=== PATIENT | male | born 2005 | race African-American/Black ===

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

== ENCOUNTER 2024-05-16 16:59 | Emergency (ER) | payer OTHER ==
[~2024-05-16] VITALS: Ht 180.3 cm; Wt 72.2 kg
[~2024-05-16 16:59] MED LIST changes: +DOXY-354 PO
[2024-05-16 18:10] LABS: COVID AG,FIA SOURCE NASAL SWAB
[2024-05-16 18:31] LABS: RAPID GROUP A STREP NEGATIVE (NEGATIVE)
[2024-05-16 18:41] LABS: INFLUENZA TYPE B NEGATIVE FOR TYPE B (NEGATIVE); SARS-COV2 (COVID) ANTIGEN,FIA Negative (Negative)
[2024-05-16 18:47] LABS: INFLUENZA TYPE A POSITIVE FOR TYPE A (NEGATIVE)
[2024-05-16 19:12] VITALS: BP 124/66; PULSE 89; RESP 22; TEMP 102.1; O2SAT 100
[2024-05-16] MEDS ORDERED: GUAIFDM PO (19:28)
[2024-05-16] MEDS ORDERED: IBUP-1554 PO (19:28)
[2024-05-16] MEDS ORDERED: ACET-66 PO (19:28)
[2024-05-16] MEDS: ACETAMINOPHEN 500 MG TABLET PO ONE (19:45)
[2024-05-16] MEDS: GuaiFENesin/D-METHORPHAN [SUGAR-FREE] 200-20MG/10 ML SYRUP UDCUP PO ONE (19:45)
[2024-05-16] MEDS: IBUPROFEN 600 MG TABLET PO ONE (19:45)
== END 2024-05-16 20:07 | disposition home or self-care (01) ==
LOC: EMS 16:59
DX: J10.1 Influenza due to other identified influenza virus with other respiratory manifestations (principal); Z20.822 Contact with and (suspected) exposure to COVID-19
CPT/HCPCS: 87430; 87804; 99284; Z7502; Z7610

== ENCOUNTER 2024-05-20 10:33 | Emergency (ER) | payer OTHER ==
[~2024-05-20] VITALS: Ht 180.3 cm; Wt 75.0 kg
[~2024-05-20 10:33] MED LIST changes: +ACET-66 PO; -ALBU8.5H8 IH; -DOXY-354 PO; +GUAIFDM PO; +IBUP-1554 PO
[2024-05-20 10:38] VITALS: TEMP 97.6
[2024-05-20] MEDS: ACETAMINOPHEN 500 MG TABLET PO ONE (11:11)
[2024-05-20 11:50] VITALS: BP 100/58; PULSE 65; RESP 18; O2SAT 100
[2024-05-20] MEDS ORDERED: ACET-3385 PO (11:59)
[2024-05-20] MEDS ORDERED: IBUP-1492 PO (11:59)
[2024-05-20] MEDS ORDERED: AZIT-164 PO (11:59)
[2024-05-20] MEDS: AZITHROMYCIN 500 MG TABLET PO ONE (12:02)
== END 2024-05-20 12:12 | disposition home or self-care (01) ==
LOC: EMS 10:35
DX: J40 Bronchitis, not specified as acute or chronic (principal)
CPT/HCPCS: 99283; 71046; J0456

== ENCOUNTER 2024-05-22 10:51 | Emergency (ER) | payer OTHER ==
[~2024-05-22] VITALS: Ht 177.8 cm; Wt 59.1 kg
[~2024-05-22 10:51] MED LIST changes: +ACET-3385 PO; -ACET-66 PO; +AZIT-164 PO; -GUAIFDM PO; +IBUP-1492 PO; -IBUP-1554 PO
[2024-05-22 11:38] LABS: BASOPHILS % (AUTO) 1.1 % (0.0-2.0); EOSINOPHILS % (AUTO) 1.1 % (1.0-6.0); HEMATOCRIT 44.5 % (41-53); HEMOGLOBIN 14.8 g/dL (13.5-17.5); LYMPHOCYTES % (AUTO) 52.5 % (22.0-44.0); MEAN CORPUSCULAR HEMOGLOBIN 27.4 pg (26.0-34.0); MEAN CORPUSCULAR HGB CONC 33.3 G/dL (31.0-37.0); MEAN CORPUSCULAR VOLUME 82 fL (80-100); MONOCYTES # (AUTO) 0.5 K/uL (0.1-1.0); MONOCYTES % (AUTO) 13.3 % (2.0-9.0); NEUTROPHILS # (AUTO) 1.2 K/uL (1.8-7.7); PLATELET COUNT (AUTO) 209 K/uL (150-450); RED BLOOD CELL COUNT(AUTO) 5.42 MIL/uL (4.50-5.90); WHITE BLOOD COUNT (AUTO) 3.9 K/uL (4.5-11.0)
[2024-05-22 11:49] LABS: ANION GAP 16 mmol/L (8-16); CALCIUM, TOTAL 9.3 mg/dL (8.8-10.5); CARBON DIOXIDE 20 mmol/L (22-29); CHLORIDE 102 mmol/L (98-107); CREATININE 1.11 mg/dL (0.60-1.30); GLOMERULAR FILTR. RATE CALC > 60 mL/min (>60); GLUCOSE,RANDOM 77 mg/dL (70-110); POTASSIUM 3.3 mmol/L (3.5-5.1); SODIUM SERUM 138 mmol/L (136-145); UREA NITROGEN, BLOOD 14 mg/dL (7-18)
[2024-05-22 11:58] LABS: TROPONIN I-HIGH SENSITIVITY 8 ng/L (<76)
[2024-05-22 12:02] LABS: B-TYPE NATRIURETIC PEPTIDE 11 pg/mL (0-100)
[2024-05-22 12:12] VITALS: TEMP 98.2
[2024-05-22] MEDS: POTASSIUM CHLORIDE 20 MEQ ER TABLET PO ONE (13:22)
[2024-05-22] MEDS: LORazepam 1 MG TABLET PO ONE (13:22)
[2024-05-22 14:00] VITALS: BP 114/69; PULSE 75; RESP 16; O2SAT 98
== END 2024-05-22 14:22 | disposition home or self-care (01) ==
LOC: EMS 10:57
DX: R06.02 Shortness of breath (principal); R05.9 Cough, unspecified; J45.909 Unspecified asthma, uncomplicated; E87.6 Hypokalemia; Z98.890 Other specified postprocedural states
CPT/HCPCS: 71045; 80048; 83880; 84484; 85025; 85379; 93005; 99285; 36415-L1; 36415-TC

== ENCOUNTER 2024-05-30 13:38 | Emergency (ER) | payer OTHER ==
[~2024-05-30] VITALS: Ht 180.3 cm; Wt 72.7 kg
[2024-05-30 13:54] VITALS: BP 118/63; PULSE 68; RESP 18; TEMP 98.6; O2SAT 99
[2024-05-30] MEDS: IBUPROFEN 600 MG TABLET PO ONE (14:07)
[2024-05-30] MEDS: BACITRACIN 0.9 GM PACKET OINTMENT TP ONE (14:08)
[2024-05-30] MEDS ORDERED: IBUP-1554 PO (14:24)
[2024-05-30] MEDS ORDERED: BACI28.410 TP (14:24)
== END 2024-05-30 14:40 | disposition home or self-care (01) ==
LOC: EMS 13:38
DX: T24.231A Burn of second degree of right lower leg, initial encounter (principal); T31.0 Burns involving less than 10% of body surface; J45.909 Unspecified asthma, uncomplicated; X08.8XXA Exposure to other specified smoke, fire and flames, initial encounter; Y93.89 Activity, other specified; Y92.89 Other specified places as the place of occurrence of the external cause; Y99.8 Other external cause status
CPT/HCPCS: 16020; 99282; Z7502; Z7610

== ENCOUNTER 2024-09-03 16:51 | Emergency (ER) | payer OTHER ==
[~2024-09-03] VITALS: Ht 177.8 cm; Wt 77.3 kg
[~2024-09-03 16:51] MED LIST changes: +BACI28.410 TP; +IBUP-1554 PO
[2024-09-03 17:02] VITALS: BP 116/95; PULSE 92; RESP 18; TEMP 98.1; O2SAT 99
[2024-09-03 17:30] LABS: INFLUENZA TYPE A NEGATIVE FOR TYPE A (NEGATIVE); INFLUENZA TYPE B NEGATIVE FOR TYPE B (NEGATIVE)
[2024-09-03] MEDS: ALBUTEROL SULFATE HFA 90 MCG/PUFF 8 GM INHALER IH ONE (18:40)
[2024-09-03] MEDS: AZITHROMYCIN 500 MG TABLET PO ONE (18:40)
== END 2024-09-03 18:57 | disposition home or self-care (01) ==
LOC: EMS 16:51
DX: J40 Bronchitis, not specified as acute or chronic (principal)
CPT/HCPCS: 99283; 87804; 94640; J0456; J3535

== ENCOUNTER 2024-11-10 10:02 | Emergency (ER) | payer OTHER ==
[~2024-11-10] VITALS: Ht 180.3 cm; Wt 77.3 kg
[~2024-11-10 10:02] MED LIST changes: -ACET-3385 PO; +ALBU18HF12 IH; -BACI28.410 TP; -IBUP-1492 PO; -IBUP-1554 PO; +NIRM1TAB10 PO
[2024-11-10 10:23] VITALS: TEMP 98
[2024-11-10] MEDS ORDERED: IBUP-1492 PO (12:32)
[2024-11-10 13:08] VITALS: BP 122/84; PULSE 83; RESP 17; O2SAT 99
== END 2024-11-10 13:22 | disposition home or self-care (01) ==
LOC: EMS 10:13
DX: S86.911A Strain of unspecified muscle(s) and tendon(s) at lower leg level, right leg, initial encounter (principal); J45.909 Unspecified asthma, uncomplicated; F12.90 Cannabis use, unspecified, uncomplicated; Z98.890 Other specified postprocedural states; Z79.899 Other long term (current) drug therapy; V89.2XXA Person injured in unspecified motor-vehicle accident, traffic, initial encounter; Y93.89 Activity, other specified; Y92.410 Unspecified street and highway as the place of occurrence of the external cause; Y99.8 Other external cause status
CPT/HCPCS: 99283

== ENCOUNTER 2025-03-12 09:59 | Emergency (ER) | payer OTHER ==
[~2025-03-12] VITALS: Ht 182.9 cm; Wt 72.7 kg
[~2025-03-12 09:59] MED LIST changes: +IBUP-1492 PO
[2025-03-12 10:36] LABS: COVID AG,FIA SOURCE NASAL SWAB
[2025-03-12 10:54] LABS: RAPID GROUP A STREP NEGATIVE (NEGATIVE)
[2025-03-12] MEDS: AMOX TR/POT CLAV 875 MG/125 MG TABLET PO ONE (10:55)
[2025-03-12] MEDS: ACETAMINOPHEN 500 MG TABLET PO ONE (10:55)
[2025-03-12] MEDS: IBUPROFEN 600 MG TABLET PO ONE (10:55)
[2025-03-12] MEDS: ALBUTEROL SULFATE HFA 90 MCG/PUFF 8 GM INHALER IH ONE (10:59)
[2025-03-12 11:02] LABS: SARS-COV2 (COVID) ANTIGEN,FIA Negative (Negative)
[2025-03-12 11:03] LABS: INFLUENZA TYPE A NEGATIVE FOR TYPE A (NEGATIVE); INFLUENZA TYPE B NEGATIVE FOR TYPE B (NEGATIVE)
[2025-03-12] MEDS ORDERED: IBUP-1492 PO (11:14)
[2025-03-12] MEDS ORDERED: AMOX-457 PO (11:14)
[2025-03-12] MEDS ORDERED: ACET-3385 PO (11:14)
[2025-03-12 11:50] VITALS: BP 105/55; PULSE 68; RESP 18; TEMP 97.4; O2SAT 100
== END 2025-03-12 11:53 | disposition home or self-care (01) ==
LOC: EMS 09:59
DX: J02.9 Acute pharyngitis, unspecified (principal); R09.81 Nasal congestion; J45.909 Unspecified asthma, uncomplicated; F12.90 Cannabis use, unspecified, uncomplicated; Z79.1 Long term (current) use of non-steroidal anti-inflammatories (NSAID); Z79.899 Other long term (current) drug therapy; Z98.890 Other specified postprocedural states; Z20.822 Contact with and (suspected) exposure to COVID-19
CPT/HCPCS: 99284; 87426; 87430; 87804; 94640; J3535